=== PATIENT | female | born 1970 | race Caucasian/White ===

== ENCOUNTER → 2020-02-13 | Outpatient (CLI) | payer OTHER | LOC: LAB 09:40 | PROVIDERS: ATTEND Surgery | DX: Z01.812 Encounter for preprocedural laboratory examination (principal); Z20.828 Contact with and (suspected) exposure to other viral communicable diseases ==

== ENCOUNTER 2020-02-16 06:27 | Day surgery (SDC) | payer OTHER ==
[~2020-02-16] VITALS: Ht 175.3 cm; Wt 83.0 kg
--- NOTE | ~2020-02-16 | O ---
[facility] [place] [address] OPERATIVE REPORT Name: AMANDA WAHL Room #: 150-5 [facility] M.R.#: [id number] Admission: 02/16/20 Attend Phys: Luis A Cesar, Discharge: Date of : 74 Report #: [id number] THIS REPORT FOR: cc: [facility] - Family physician unknown Luis A Cesar MD ~ CC: [facility] unknown Luis A IZQUIERDOCHIRAZIA DATE OF SERVICE: 02/16/2020 PREOPERATIVE DIAGNOSIS: Chronic cholecystitis. POSTOPERATIVE DIAGNOSIS: Chronic cholecystitis. OPERATION: Laparoscopic cholecystectomy. SURGEON: Luis A Cesar MD ANESTHESIA: General. ESTIMATED BLOOD LOSS: Minimal. SPECIMEN: Gallbladder. DESCRIPTION OF PROCEDURE: After informed consent was obtained, the patient was brought to the operating room and placed supine. SCDs were placed and working, preoperative antibiotics were administered, general anesthesia was induced. The abdomen was prepped and draped in the usual sterile fashion. A 10 mm incision was made below the umbilicus. Fascia was incised and a trocar was placed. Pneumoperitoneum was established. Three right upper quadrant 5 mm ports were placed. Gallbladder was grasped at the fundus and retracted cephalad. Infundibulum was grasped and retracted laterally. I dissected out the cystic duct and the cystic artery. The cystic duct and artery were clipped and ligated leaving 2 clips on the remaining duct and one on the remaining artery. This was done only after the cystic plate was fully identified. The gallbladder was then taken off the liver bed with electrocautery. It was placed into an Endopouch and removed. The fascia was then closed with a [id number] 0 Vicryl. Skin was closed with 4-0 Monocryl. Incisions were sealed with Dermabond. COMPLICATIONS: None. [facility] [address] [place] [address] OPERATIVE REPORT Name: AMANDA WAHL Room #: 150-5 [facility].#: [id number] Admission: 02/16/20 Attend Phys: Luis A Cesar, Discharge: Date of : 74 Report #: [id number] DISPOSITION: The patient was taken to recovery in satisfactory condition. By: 0914 2 Luis A Cesar MD /mercedes
[~2020-02-16 06:27] MED LIST: ONDANSETRON HCL4 M3 PO
[2020-02-16 07:35] LABS: CALCIUM 8.9 mg/dL (8.5-10.1); CREATININE 0.7 mg/dL (0.6-1.0); POTASSIUM 3.7 mmol/L (3.5-5.1)
[2020-02-16 07:40] LABS: ALBUMIN 3.9 g/dL (3.4-5.0); TOTAL BILIRUBIN 0.4 mg/dL (0.2-1.0); TOTAL PROTEIN 7.7 g/dL (6.4-8.2)
[2020-02-16 08:15] VITALS: BP 127/84
[2020-02-16] MEDS ORDERED: NORCO 10-325 T1 EACH PO (09:10)
[2020-02-16 09:36] VITALS: BP 127/84
--- NOTE | 2020-02-19 17:06 | PATH ---
[facility] [address] [place] [address] PATHOLOGY RPT PROCEDURE Name: AMANDA WAHL Room #: [facility] M.R.#: [id number] Admission: 02/16/20 Date of : 74 Discharge: 02/16/20 Report #: [id number] Path Case #: [id number] [facility] Accession Number: [id number] . 01 Material submitted: . gallbladder - GALLBLADDER . 01 Clinical history: . CALCULUS OF GALLBLADDER . 02 Diagnosis: Gallbladder, cholecystectomy: - Mild chronic cholecystitis. - Minute incidental lymph node. . (IUV:mml; 02/19/2020) [facility] 02/19/2020 1331 Local . 02 Electronically signed: . Jesika Hanna MD, Pathologist NPI- [id number] . 01 Gross description: . The specimen is received in formalin labeled "Amanda Wahl gallbladder" and consists of an intact pink green gallbladder measuring 8.8 x 3.1 x 2.8 cm. The margin is inked black. Opening reveals a lumen filled with viscous green bile and no calculi. No calculi are identified within container. The mucosa is green with scattered yellow stippled and an average wall thickness of 0.1 cm. No masses are identified. Adjacent the margin is a lymph node candidate measuring 0.4 cm. Bull Bucker sections are submitted in A1 to include the lymph node candidate (intact). (SDY; 02/16/2020) SYU/SYU 02/16/2020 1633 Local . 02 Pathologist provided ICD-10: K81.1 . 02 CPT . 289844 Specimen Comment: A courtesy copy of this report has been sent to [phone], [phone] Specimen Comment: [phone] Specimen Comment: Report sent to / DR KAPOOR Performed at: [address] [facility], [place] [id number] MD Tomasz Garcia MD Phone: [phone] [address] [address] PATHOLOGY RPT PROCEDURE Name: AMANDA WAHL THOM Room #: [facility] Amparo#: [id number] Admission: 02/16/20 Date of : 74 Discharge: 02/16/20 Report #: [id number] Path Case #: [id number] Performed at: [address] [facility] [place] [address], [place], [place] [id number] MD Jesika Hanna MD Phone: [phone]
== END 2020-02-16 10:28 | disposition home or self-care (01) ==
LOC: OR 06:27 → TBA 06:42 → OR 09:01
PROVIDERS: ATTEND Surgery
DX: K80.10 Calculus of gallbladder with chronic cholecystitis without obstruction (principal); K21.9 Gastro-esophageal reflux disease without esophagitis; F17.210 Nicotine dependence, cigarettes, uncomplicated; Z79.899 Other long term (current) drug therapy; Z98.890 Other specified postprocedural states; Z88.0 Allergy status to penicillin; Z72.89 Other problems related to lifestyle
CPT/HCPCS: 50010; 50101; 50249; 50411; 50555; 51489; 52265; 52266; 53307; 53312; 53314; 54118; 55245; 56462; 56525; 56526; 62110; 62900; 70005